=== PATIENT | female | born 1975 | race Caucasian/White ===

== ENCOUNTER → 2021-02-21 20:23 | Outpatient (REF) | payer MEDICARE, MEDICAID, SELFPAY | LOC: HO.SL 20:23 | PROVIDERS: Visit Provider Psychiatry & Neurology Neurology | DX: G47.33 Obstructive sleep apnea (adult) (pediatric) (principal) | CPT/HCPCS: 95811 ==

== ENCOUNTER → 2021-04-11 10:43 | Outpatient (BNVA) | payer MEDICARE, MEDICAID, SELFPAY | PROVIDERS: Visit Provider Nurse Practitioner Family | DX: G47.33 Obstructive sleep apnea (adult) (pediatric) (principal); G47.61 Periodic limb movement disorder | CPT/HCPCS: Q3014 ==

== ENCOUNTER 2021-04-13 13:56 | Outpatient (REF) | payer MEDICARE, MEDICAID, SELFPAY ==
[2021-04-13 15:01] LABS: MANUAL DIFF FLAG NO
[2021-04-13 15:05] LABS: Basophils Absolute Auto 0.1 X10*3/uL (0.0-0.2); Basophils Percent Auto 0.7 % (0-2); Eosinophils Absolute Auto 0.2 X10*3/uL (0.0-0.4); Eosinophils Percent Auto 2.2 % (0-4); Hematocrit 41.6 % (37-47); Hemoglobin 13.8 g/dl (12.0-16.0); Imm Gran Abs Auto 0.08 X10*3/uL (0.00-0.03); Lymphocytes Absolute Auto 2.1 X10*3/uL (1.2-4.9); Lymphocytes Percent Auto 26.9 % (20-40); Mean Corpuscular HGB Conc 33.2 g/dl (31.0-35.0); Mean Corpuscular Hemoglobin 33.4 pg (27.0-33.0); Mean Corpuscular Volume 100.7 fL (80-98); Mean Platelet Volume 9.4 fL (9.4-12.3); Monocytes Absolute Auto 0.4 X10*3/uL (0.1-1.2); Monocytes Percent Auto 5.6 % (2-11); Neutrophils Absolute Auto 4.9 X10*3/uL (2.0-8.3); Neutrophils Percent Auto 63.6 % (45-73); Platelet Count 348 X10*3/uL (160-400); Red Blood Count 4.13 X10*6/uL (4.20-5.50); Red Cell Distribution Width 12.2 % (11.0-16.0); White Blood Count 7.6 X10*3/uL (4.8-10.8)
[2021-04-13 15:32] LABS: Alanine Aminotransferase 24 U/L (0-31); Albumin Level 4.1 g/dL (3.5-5.0); Alkaline Phosphatase 69 U/L (39-117); Anion Gap 12 (12-20); Aspartate Amino Transferase 20 U/L (5-31); Bilirubin Total 0.4 mg/dL (0.0-1.0); Blood Urea Nitrogen 17 mg/dL (9-16); Calcium 9.8 mg/dL (8.4-10.2); Carbon Dioxide 27 mmol/L (22-29); Chloride 101 mmol/L (96-108); Estimated Glomerular Filt Rate > 60; Glucose Random 114 mg/dL (60-115); Iron 94 mcg/dL (30-160); Percent Iron Saturation 24 % (15-50); Potassium 4.6 mmol/L (3.3-5.1); Sodium 135 mmol/L (135-145); Total Iron Binding Capacity 385 mcg/dL (228-428); Total Protein 6.8 g/dL (6.5-8.0); Unsaturated Iron Binding 291 ug/dL
[2021-04-13 15:55] LABS: Ferritin 142 ng/mL (10-250); TSH reflex Free T4 0.88 uIU/mL (0.32-4.0)
[2021-04-13 15:59] LABS: Vitamin B12 356 pg/mL (200-900)
[2021-04-17 22:03] LABS: Transferrin 297 mg/dL (188-341)
== END 2021-04-13 13:57 | disposition home or self-care (01) ==
LOC: HO.LAB 13:56
PROVIDERS: PCP Internal Medicine; Visit Provider Nurse Practitioner Family
DX: D64.9 Anemia, unspecified (principal); G47.61 Periodic limb movement disorder; R53.83 Other fatigue
CPT/HCPCS: 36415; 80053; 82607; 82728; 82746; 83540; 84443; 84466; 85025

== ENCOUNTER → 2021-06-27 11:19 | Outpatient (BNVA) | payer MEDICARE, MEDICAID, SELFPAY | PROVIDERS: PCP Internal Medicine; Visit Provider Nurse Practitioner Family | CPT/HCPCS: Q3014 ==

== ENCOUNTER → 2021-09-19 11:45 | Outpatient (BNVA) | payer MEDICARE, MEDICAID, SELFPAY | PROVIDERS: PCP Internal Medicine; Visit Provider Nurse Practitioner Family | CPT/HCPCS: Q3014 ==

== ENCOUNTER 2021-10-10 15:42 | Outpatient (REF) | payer MEDICARE, MEDICAID, SELFPAY ==
--- NOTE | ~2021-10-10 | XR_ITS ---
EXAMINATION: XR CHEST CLINICAL INFORMATION: Acute bronchitis COMPARISON: Previous chest x-ray March 2016 TECHNIQUE: 2 views of the chest were obtained. FINDINGS: The cardiac and mediastinal contours are normal. The lungs are clear. There is no pleural effusion or pneumothorax. There are mild degenerative changes of the spine. XR/XR chest 2V IMPRESSION: Unremarkable examination.
== END 2021-10-10 15:43 | disposition home or self-care (01) ==
LOC: HO.HMGCX 15:42
PROVIDERS: Visit Provider Internal Medicine
DX: Z13.89 Encounter for screening for other disorder (principal)
CPT/HCPCS: 71046

== ENCOUNTER 2021-10-10 16:04 | Outpatient (REF) | payer MEDICARE, MEDICAID, SELFPAY ==
[2021-10-11 12:58] LABS: Influenza A PCR NEGATIVE (Negative); Influenza B PCR NEGATIVE (Negative); Resp Syncy Virus RNA Qual PCR NEGATIVE (Negative); SARS COV2 PCR INHOUSE NEGATIVE (Negative)
== END 2021-10-10 16:05 | disposition home or self-care (01) ==
LOC: HO.LAB 16:04
PROVIDERS: Visit Provider Internal Medicine
DX: Z20.822 Contact with and (suspected) exposure to COVID-19 (principal); R43.9 Unspecified disturbances of smell and taste
CPT/HCPCS: 0241U; 36415; 71046

== ENCOUNTER 2022-05-03 13:01 | Outpatient (REF) | payer MEDICARE, MEDICAID, SELFPAY ==
--- NOTE | ~2022-05-03 | XR_ITS ---
EXAMINATION: XR FOOT, RIGHT CLINICAL INFORMATION: Pain COMPARISON: None TECHNIQUE: AP, lateral, and oblique views of the right foot. FINDINGS: No acute visible fracture or dislocation. 4 mm ossific density in the posterior talocalcaneal joint, likely degenerative in etiology though nonspecific. Tiny plantar calcaneal heel spur. Joint spaces and alignment are otherwise maintained. Soft tissues are unremarkable. XR/XR foot RT min 3V IMPRESSION: No acute visible fracture or dislocation.
== END 2022-05-03 13:02 | disposition home or self-care (01) ==
LOC: HO.HMGCX 13:01
DX: M79.671 Pain in right foot (principal)
CPT/HCPCS: 73630

== ENCOUNTER 2022-08-21 18:03 | Outpatient (REF) | payer MEDICARE, MEDICAID, SELFPAY ==
--- NOTE | ~2022-08-21 | MR_ITS ---
EXAMINATION: MR HIP WITHOUT CONTRAST, LEFT CLINICAL INFORMATION: Pain, worsening, heard pop; rule out tear. COMPARISON: None TECHNIQUE: MRI of the left hip was obtained using routine sequences on a high-field magnet. FINDINGS: LABRUM/CAPSULE: Intact BONES AND ARTICULAR CARTILAGE: Bone marrow signal is normal aside from the focal edema signal in the left parasymphyseal pubic bone adjacent to the adductor avulsion injury detailed below. Left hip joint appears relatively well-preserved, as does the imaged portion of the left SI joint. No appreciable acute osseous abnormalities in the right hemipelvis on the coronal whole pelvis images. Degenerative disc disease at L5-S1. MUSCLES AND TENDONS: A partial tear of the gluteus minimus tendon at its insertion on the greater tuberosity measures approximately 1 cm AP with subtle retraction of undersurface fibers. The more superficial fibers remain intact. Approximately one-half of the tendon thickness is involved. Surrounding soft tissues are edematous. There is mild gluteus medius tendinosis without a discrete gluteus medius tear. No significant muscle atrophy. Minimal hamstring tendinosis. At the pubic symphysis, there is a focal tear of the adductor longus aponeurosis at its lateral half measuring 1.1 cm in width with distal retraction of the torn margin by 5 mm. A small focus of cortical avulsion in this region is possible. There is surrounding soft tissue edema as well as underlying marrow edema at the pubic symphysis. Hip adductors are otherwise unremarkable. JOINT FLUID AND BURSAE: No joint effusion or bursitis. LIGAMENTUM TERES: Intact. INTRAPELVIC SOFT TISSUES: Unremarkable MR/MR hip LT wo con IMPRESSION: 1. Partial avulsion of the left adductor longus aponeurosis at the pubic symphysis, possibly with a small cortical fragment. 2. Partial tear of the gluteus minimus insertion. Mild gluteus medius tendinosis.
== END 2022-08-21 18:04 | disposition home or self-care (01) ==
LOC: HO.MRI 18:03
PROVIDERS: PCP Internal Medicine; Visit Provider Internal Medicine
DX: M25.552 Pain in left hip (principal)
CPT/HCPCS: 73721

== ENCOUNTER 2022-10-01 | Outpatient (REF) | payer MEDICARE, MEDICAID, SELFPAY ==
--- NOTE | ~2022-10-01 | XR_ITS ---
EXAMINATION: XR HIP, LEFT CLINICAL INFORMATION: Pain COMPARISON: MRI left hip from 08/21/2022 TECHNIQUE: Two views of the left hip. FINDINGS: Pelvic bones have normal alignment. The hip joint spaces are normal. No arthritic deformity. Pubic symphysis and sacroiliac joints are unremarkable. No focal lytic or blastic lesion. Multilevel osteophyte formation in the partially visualized lower lumbar spine. Soft tissues are grossly normal. XR/XR hip LT w PEL1V IMPRESSION: 1. Normal hips. 2. Mild discovertebral degenerative changes of the partially visualized lower lumbar spine.
== END 2022-10-01 00:01 | disposition home or self-care (01) ==
LOC: HO.HOSX
PROVIDERS: Visit Provider Physician Assistant
DX: S76.212A Strain of adductor muscle, fascia and tendon of left thigh, initial encounter (principal)
CPT/HCPCS: 73502; 99202

== ENCOUNTER → 2023-01-08 09:48 | Outpatient (REF) | payer MEDICARE, MEDICAID, SELFPAY ==
--- NOTE | 2023-01-08 09:52 | CA_ITS ---
Acquisition Time: 2023-01-08 10:04:19 Total Exercise Time: 00:06:11 Test Indications: CP Medications: SEE CHART Protocol: BETH Max HR: 144 BPM 82% of Pred: 174 BPM Max BP: 224/080 mmHG Max Work Load: 7.2 METS Exercise stress test with exercise 6 min 11 sec of Beth protocol, achieving 83% MPHR, with mild sob, no chest discomfort, with isolated PAC and PVC, with hypertensive response to exercise with max BP 224/80, without EKG changes meeting criteria for ischemia. In recovery BP returned back to baseline, 124/80. Test reviewed with Dr White Note: pt states she did not take her am meds today. Referred By: Veda Cain Overread By: MARITA ROSARIO
== END ==
LOC: HO.CARD 09:48
PROVIDERS: PCP Internal Medicine; Visit Provider Family Medicine
DX: I20.9 Angina pectoris, unspecified (principal)
CPT/HCPCS: 93017

== ENCOUNTER 2023-01-21 09:44 | Emergency (ER) | payer MEDICARE, MEDICAID, SELFPAY ==
[2023-01-21 09:48] VITALS: BP 181/96; PULSE 94; RESP 16; TEMP 36.6; O2SAT 98; BMI 47.2
--- NOTE | 2023-01-21 10:36 | ED.NEUROSD ---
HPI - Neuro Symptoms/Deficit General Chief Complaint: Neuro Symptoms/Deficit Stated Complaint: L side numbness/L ear hearing loss Time Seen by Provider: 01/21/23 10:35 Source: patient Mode of arrival: ambulatory Limitations: no limitations History of Present Illness HPI Narrative: left ear pain and now with left facial pain. Onset (ago): day(s) (1) Location: left face Severity: mild Associated symptoms: denies other symptoms Related Data Home Medications Medication Instructions Recorded Confirmed bupropion HCl 150 mg tablet,12 hr 150 mg PO DAILY 04/11/21 05/03/22 sustained-release celecoxib 200 mg capsule 200 mg PO DAILY 04/11/21 05/03/22 fluoxetine 20 mg capsule 60 mg PO DAILY 04/11/21 05/03/22 lamotrigine 100 mg tablet 100 mg PO DAILY 04/11/21 05/03/22 lisinopril 40 mg tablet 40 mg PO DAILY 04/11/21 05/03/22 loratadine 10 mg tablet 10 mg PO DAILY 04/11/21 05/03/22 propranolol 80 mg capsule,24 mg PO 04/11/21 05/03/22 hr,extended release Previous Rx's Medication Instructions Recorded albuterol sulfate 90 mcg/actuation 1 inh inhalation QID PRN shortness 10/10/21 aerosol inhaler of breath or wheezing #6.7 grams prednisone 10 mg tablet 30 mg PO DAILY #15 tabs 05/03/22 valacyclovir 1 gram tablet 1,000 mg PO BID #20 tabs 01/21/23 Allergies Allergy/AdvReac Type Severity Reaction Status Date / Time latex [LATEX] Allergy Intermediate HIVES Verified 01/21/23 09:53 Sulfa (Sulfonamide Allergy Mild VOMITING Verified 01/21/23 09:53 Antibiotics) [SULFA(SULFONAMIDE ANTIBIOTICS)] cefaclor [From CECLOR] Allergy Unknown HIVES Verified 01/21/23 09:53 Sulfacet-R Allergy Unknown unknown Uncoded 01/21/23 09:53 Review of Systems Review of Systems: Yes all other systems are reviewed and are negative Neurologic: Denies Sensory deficit (Neuro) Comments: patient with months of weakness, dizziness, numbness PMFSH Past Medical History Medical History Acute bronchitis High blood pressure Social History Social History Alcohol intake: former Patient Tobacco Use Status: Current everyday Tobacco user Smoked in Last 30 Days: Yes Use of substances other than those prescribed or required for medical reasons: No Advance Directives: No Advance Directives Information Provided: Yes Current occupational status: disabled Current occupation: rt hand Physical Exam Vital Signs: Vital Signs: Last Vital Signs Temp 97.8 F 01/21/23 09:48 Pulse 83 01/21/23 10:39 Resp 14 01/21/23 10:39 BP 135/74 01/21/23 10:39 Pulse Ox 97 01/21/23 10:39 O2 Del Method 01/21/23 10:39 BMI result Body Mass Index 47.2 Const: General: healthy appearing Nutritional Appearance: obese Orientation/consciousness: oriented to person and patient oriented x3 Limitations: no limitations HEENT: Head: Yes normal to inspection Ears: external ears normal General nose exam: Normal external nose present Mouth: Normal oral and palatal mucosa present and oropharynx normal Throat: Yes posterior oropharynx normal Eyes: General: appearance normal, both eyes and all related structures Neck: Other: supple Neck: Yes normal visual inspection Chest: Chest palpation & inspection: normal inspection of the chest Resp: Auscultation: clear to auscultation bilaterally Cardio: Jugular venous distension: no JVD Rate: regular rate Rhythm: regular rhythm Heart sounds: S1 normal heart sound present and S2 normal heart sound present GI: Inspection: Yes normal to inspection Palpation (GI): Soft to palpation, nontender and No hepatosplenomegaly present Auscultation: normal bowel sounds : General: Yes no CVA tenderness Back/Spine/Pelvis: Back: no CVA tenderness Skin: General skin exam: no rashes or lesions noted Neuro: General: oriented to person and patient oriented x3 Cranial nerves: Yes CN's II-XII intact bilaterally Motor exam (neuro): 5/5 motor strength present throughout Sensory Exam: No Sensory deficit (Neuro) Extrem: General: Yes normal to inspection Psych: Appearance: grossly normal Course Reevaluation(s) Reevaluation #1: patient with neurologic symptoms for months going for neuroligic workup for MS. Now with left facial pain, hearing change and change in taste. No skin lesion seen but patient sounds like she is developing zoster will treat with valcyclovir. Time: 10:47 Medical Decision Making Differential Diagnosis Differential Diagnoses: The differential diagnosis associated with the presentation includes (zoster, bells palsy, CVA, trigeminal neuralgia, ) Admission/Observation Consideration of admission/observation: Escalation of care including admission/observation considered (because of neurologic symptoms admission was considered) Tests considered The following testing was considered but not selected: CT of brain and MRI were considered Discharge Plan Discharge Clinical Impression: Neuralgia and neuritis, Herpes zoster Patient Disposition: Home, Self-Care Instructions: Shingles (ED), Paresthesia (ED) Prescriptions: New valacyclovir 1 gram tablet 1,000 mg PO BID Qty: 20 0RF No Action albuterol sulfate 90 mcg/actuation HFA aerosol inhaler 1 inh inhalation QID PRN (Reason: shortness of breath or wheezing) Qty: 6.7 1RF prednisone 10 mg tablet 30 mg PO DAILY Qty: 15 0RF lisinopril 40 mg tablet 40 mg PO DAILY propranolol 80 mg capsule,extended release 24 hr PO bupropion HCl 150 mg tablet sustained-release 12 hr 150 mg PO DAILY lamotrigine 100 mg tablet 100 mg PO DAILY loratadine 10 mg tablet 10 mg PO DAILY celecoxib 200 mg capsule 200 mg PO DAILY fluoxetine 20 mg capsule 60 mg PO DAILY Referrals: Hortencia Aguilar MD [Primary Care Provider] - 5 days
[2023-01-21 10:39] VITALS: BP 135/74; PULSE 83; RESP 14; O2SAT 97
== END 2023-01-21 11:18 | disposition home or self-care (01) ==
PROVIDERS: Emergency Provider Emergency Medicine; PCP Internal Medicine
DX: M79.2 Neuralgia and neuritis, unspecified (principal); B02.9 Zoster without complications
CPT/HCPCS: 99283; 99284

== ENCOUNTER 2023-03-19 15:25 | Outpatient (REF) | payer MEDICARE, MEDICAID, SELFPAY ==
--- NOTE | ~2023-03-19 | US_ITS ---
EXAMINATION: US THYROID CLINICAL INFORMATION: Thyromegaly. COMPARISON: None available. TECHNIQUE: Linear transducer grayscale and color Doppler examination with attention to the region of the thyroid. FINDINGS: SIZE: Measurements of the thyroid lobes and nodules are given in sagittal, anteroposterior and transverse dimensions respectively. Right Thyroid Lobe: 4.19 x 1.04 x 1.66 cm, volume 3.78 mL. Parenchyma: The gland echotexture is homogeneous. Thyroid vascularity is normal. Left Thyroid Lobe: 3.54 x 1.32 x 1.73 cm, volume 4.21 mL. Parenchyma: The gland echotexture is homogeneous. Thyroid vascularity is normal. Isthmus: 0.43 cm in maximum AP dimension. No focal thyroid nodule is seen. NODES: No lymphadenopathy is seen in the tissue surrounding the thyroid gland. US/US thyroid IMPRESSION: Normal thyroid ultrasound.
== END 2023-03-19 15:26 | disposition home or self-care (01) ==
LOC: HO.HMGCX 15:25
PROVIDERS: PCP Internal Medicine; Visit Provider Internal Medicine
DX: E01.0 Iodine-deficiency related diffuse (endemic) goiter (principal)
CPT/HCPCS: 76536

== ENCOUNTER 2023-04-24 15:15 | Outpatient (REF) | payer MEDICARE, MEDICAID, SELFPAY ==
[2023-04-26 09:28] LABS: Prolactin 6.1 ng/mL
== END 2023-04-24 15:16 | disposition home or self-care (01) ==
LOC: HO.LAB 15:15
PROVIDERS: Visit Provider Psychiatry & Neurology Neurology
DX: E66.9 Obesity, unspecified (principal)
CPT/HCPCS: 36415; 84146

== ENCOUNTER 2023-06-17 08:01 | Outpatient (AMB) | payer MEDICARE, MEDICAID, SELFPAY ==
--- NOTE | 2023-06-17 08:09 | MHC.OFFWIV ---
Intake Vital Signs 06/17/23 08:13 BP 136/80 Blood Pressure Location Rt brachial Position Sitting Pulse 80 Pulse Source Pulse Oximeter Pulse Oximetry (%) 97 Oxygen Delivery Method Room Air Intake Visit Reasons: EP LT knee injury (lobby) Intake Note: Patient here because she fell off a boat ladder and got her foot stuck which happened saturday. Patient Tobacco Use Status: Current everyday Tobacco user Allergies latex [LATEX] Allergy (Intermediate, Verified 06/17/23 08:50) HIVES Sulfa (Sulfonamide Antibiotics) [SULFA(SULFONAMIDE ANTIBIOTICS)] Allergy (Mild, Verified 06/17/23 08:50) VOMITING cefaclor [From CECLOR] Allergy (Unknown, Verified 06/17/23 08:50) HIVES Sulfacet-R Allergy (Unknown, Uncoded 06/17/23 08:50) unknown Medication List - Last Reconciled 06/17/23 by Alfa Mckeon MD bupropion HCl 150 mg PO DAILY celecoxib 200 mg PO DAILY fluoxetine 60 mg PO DAILY lamotrigine 100 mg PO DAILY lisinopril 20 mg PO DAILY loratadine 10 mg PO DAILY propranolol ER mg PO Do you need a note to return to daycare/school/sports/work: No HPI EP LT knee injury (lobby) HPI Details 48-year-old female presents to the office for a sick visit. Patient twisted her knee 2 days ago. She is having difficulty bearing weight. Able to walk with difficulty. Unable to bend her knee. [facility] Medical History Acute bronchitis High blood pressure Social History Alcohol intake: former Patient Tobacco Use Status: Current everyday Tobacco user Current occupational status: disabled Current occupation: rt hand Physical Exam Vital Signs: Last Vital Signs Pulse 80 06/17/23 08:13 BP 136/80 06/17/23 08:13 Pulse Ox 97 06/17/23 08:13 Oxygen Delivery Method Room Air 06/17/23 08:13 Extrem Other: Left knee: Suprapatellar swelling, joint line tenderness. Pain on flexion of the knee. Assessment & Plan Assessment & Plan (1) Sprain of left knee: Code(s): S83.92XA - Sprain of unspecified site of left knee, initial encounter Plan: X-ray images were personally reviewed by me. No fractures seen. Knee splint provided. Anti-inflammatory to be taken. Avoid weight-bearing for a few days. Coding Level of Care Code Est Pt Level 4 (46492) Diagnoses Sprain of left knee S83.92XA
[2023-06-17 08:13] VITALS: BP 136/80; PULSE 80; O2SAT 97
== END 2023-06-17 09:30 | disposition home or self-care (01) ==
PROVIDERS: PCP Internal Medicine; Visit Provider Internal Medicine
DX: S83.92XA Sprain of unspecified site of left knee, initial encounter (principal)
CPT/HCPCS: 99214

== ENCOUNTER 2023-06-17 08:53 | Outpatient (REF) | payer MEDICARE, MEDICAID, SELFPAY ==
--- NOTE | ~2023-06-17 | XR_ITS ---
EXAMINATION: XR KNEE, LEFT CLINICAL INFORMATION: Left knee pain. COMPARISON: None available. TECHNIQUE: Four views of the left knee. FINDINGS: Alignment is anatomic. Joint spaces are maintained. No displaced fracture. No significant joint effusion. XR/XR knee LT 4V IMPRESSION: No acute abnormality.
== END 2023-06-17 08:54 | disposition home or self-care (01) ==
LOC: HO.HMGCX 08:53
PROVIDERS: PCP Internal Medicine; Visit Provider Internal Medicine
DX: S83.92XA Sprain of unspecified site of left knee, initial encounter (principal)
CPT/HCPCS: 73564

== ENCOUNTER 2023-06-25 07:47 | Outpatient (AMB) | payer MEDICARE, MEDICAID, SELFPAY ==
--- NOTE | 2023-06-25 07:54 | MHC.OFFVIS ---
Intake Vital Signs 06/25/23 08:01 Height 5 ft 1 in Weight 240 lb BMI 45.3 BP 122/74 Blood Pressure Location Rt brachial Position Sitting Pulse 72 Pulse Source Pulse Oximeter Pulse Oximetry (%) 98 Oxygen Delivery Method Room Air Intake Visit Reasons: NPV / THANIA on CPAP - Confirmed Intake Note: Patient presents for THANIA. my doctor wanted to make sure my oxygen is ok with my machine that I'm currently using because I'm always tired Allergies latex [LATEX] Allergy (Intermediate, Verified 06/25/23 08:02) HIVES Sulfa (Sulfonamide Antibiotics) [SULFA(SULFONAMIDE ANTIBIOTICS)] Allergy (Mild, Verified 06/25/23 08:02) VOMITING cefaclor [From CECLOR] Allergy (Unknown, Verified 06/25/23 08:02) HIVES Sulfacet-R Allergy (Unknown, Uncoded 06/25/23 08:02) unknown HPI HPI Comments History of Present Illness Details 48 y/o female presents for follow-up visit for THANIA on CPAP. Pt reports her restless legs are still quite bothersome, but it is not consistent. She gets a restlessness/anxious feeling in the legs/uncomfortable sensation in her legs. The Calcium/Mag supplement helps and still taking it. The CPAP compliance and therapy response report (03/27/23-06/24/23) reviewed with the patient. She is on CPAP at [id number]. The usage days 99% and the average usage hours 7 hours 40 min. The AHI was 1.9/hr. Pt still experiences some daytime tiredness, but not always. She states that she is in perimenopause and having heavy period sometimes and it also caused tiredness. Pt had a brain MRI done to r/o MS and it was negative. [facility] Medical History (Updated 06/25/23 @ 08:04 by ELIZA Alegria) Acute bronchitis High blood pressure Surgical History (Updated 06/25/23 @ 08:04 by ELIZA Alegria) History of placement of ear tubes Family History (Updated 06/25/23 @ 08:05 by ELIZA Alegria) Father Diabetes HTN (hypertension) Mother THANIA (obstructive sleep apnea) Restless leg syndrome Lymphedema Social History (Updated 06/25/23 @ 08:05 by ELIZA Alegria) Alcohol intake: current Patient Tobacco Use Status: Current everyday Tobacco user Current occupational status: disabled Current occupation: rt hand Review of Systems Const All systems reviewed & are unremarkable except as noted in HPI and below Physical Exam Vital Signs: Last Vital Signs Pulse 72 06/25/23 08:01 BP 122/74 06/25/23 08:01 Pulse Ox 98 06/25/23 08:01 Oxygen Delivery Method Room Air 06/25/23 08:01 BMI result Body Mass Index 45.3 Const General: no acute distress Orientation/consciousness: patient oriented x3 Resp Effort & Inspection: able to speak in complete sentences Neuro General: patient oriented x3 Psych Mental Status: mental status grossly normal Speech and movement: Clear speech present Attitude: cooperative Assessment & Plan Assessment & Plan (1) Obstructive sleep apnea syndrome, severe: Comment: AHI 37.2/hr with O2 olvin 82%. Code(s): G47.33 - Obstructive sleep apnea (adult) (pediatric) (2) Periodic limb movement sleep disorder: Comment: w/ evening RLS componenet Code(s): G47.61 - Periodic limb movement disorder Plan Continue CPAP 11 cmH2O nightly > 4 hours. Clean machine routinely. Pt declines trial of medication for RLS. Her mom had OCD s/s w/ Requip (ate excessively). May trial weight blanket, vibrating foot rest, stretching, OTC RLS creams, evening walks. Advised patient to take ferrous sulfate 325mg q every other day with vitamin C 500 mg daily. Coding Level of Care Code Est Pt Level 4 (72753) Diagnoses Obstructive sleep apnea syndrome, severe G47.33 Periodic limb movement sleep disorder G47.61
[2023-06-25 08:01] VITALS: BP 122/74; PULSE 72; O2SAT 98; BMI 45.3
== END 2023-06-25 08:35 | disposition home or self-care (01) ==
LOC: HO.HSMC 07:47
PROVIDERS: PCP Internal Medicine; Visit Provider Nurse Practitioner Family
DX: G47.33 Obstructive sleep apnea (adult) (pediatric) (principal); G47.61 Periodic limb movement disorder
CPT/HCPCS: 99214

== ENCOUNTER → 2023-06-25 07:47 | Outpatient (BNVA) | payer MEDICARE, MEDICAID, SELFPAY | PROVIDERS: PCP Internal Medicine; Visit Provider Nurse Practitioner Family | DX: G47.33 Obstructive sleep apnea (adult) (pediatric) (principal); G47.61 Periodic limb movement disorder; Z72.0 Tobacco use; Z99.89 Dependence on other enabling machines and devices | CPT/HCPCS: 99212 ==

== ENCOUNTER 2023-10-29 11:46 | Outpatient (REF) | payer MEDICARE, MEDICAID, SELFPAY | END 2023-10-29 11:47 | disposition home or self-care (01) | LOC: HO.MAMMO 11:46 | PROVIDERS: PCP Internal Medicine; Visit Provider Internal Medicine | DX: Z12.31 Encounter for screening mammogram for malignant neoplasm of breast (principal) | CPT/HCPCS: 77063; 77067 ==

== ENCOUNTER → 2023-10-29 12:00 | Outpatient (BNV) | payer MEDICARE, MEDICAID, SELFPAY | PROVIDERS: PCP Internal Medicine; Visit Provider Radiology Diagnostic Radiology | DX: Z12.31 Encounter for screening mammogram for malignant neoplasm of breast (principal) | CPT/HCPCS: 77063; 77067 ==

== ENCOUNTER 2023-11-14 09:14 | Emergency (ER) | payer MEDICARE, MEDICAID, SELFPAY ==
--- NOTE | ~2023-11-14 | CT_ITS ---
EXAMINATION: CT CHEST, ABDOMEN AND PELVIS with contrast CLINICAL INFORMATION: Reason for Exam fall abd trauma COMPARISON: Prior CT abdomen 2012 TECHNIQUE: Multidetector volumetric CT imaging of the chest abdomen and pelvis obtained Axial MIP volume rendering provided. Sagittal and coronal reformatted images were obtained. This CT examination was performed using dose optimization techniques as appropriate, variously including the following: *Automated exposure control *Adjustment of mA and/or kV according to patient size (this includes techniques or standardized protocols for targeted exams where dose is matched to indication/reason for exam; i.e. extremities or head) *Use of iterative reconstruction technique CONTRAST: 85 mL Omnipaque 350 injected Reformatted coronal and sagittal imaging was performed. DLP: 1751 mGy-cm FINDINGS: DELIVERY DEPARTMENT SUPERVISOR, LINES TUBES: Wood Treating Inspector reviewed, no lines. LUNGS: Interstitial: No evidence of significant interstitial disease. Lung nodules: Calcified granuloma right upper lobe likely benign. There are no suspicious lung nodules. AIRWAYS: Trachea and bronchi are normal. PLEURA: No pleural effusion or pneumothorax. MEDIASTINUM AND KENZIE: The visualized thyroid gland is unremarkable. No mediastinal, hilar or axillary lymphadenopathy. There is no mediastinal mass. THORACIC AORTA: Thoracic aorta is normal in size. CHEST WALL, LOWER NECK, SURROUNDING SOFT TISSUES: Cortical step-off in the sternum felt to be motion artifact. 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 Spondylosis of dorsal spine. No fracture. HEART AND PERICARDIUM: Heart is normal in size. There is no pericardial effusion. No coronary calcifications detected. HEPATOBILIARY: No focal hepatic lesions. No biliary ductal dilatation. GALLBLADDER: Gallbladder unremarkable. SPLEEN: Spleen is normal in size. PANCREAS: No focal mass or ductal dilatation. GI TRACT: No distention or wall thickening. No CT evidence of appendicitis. ADRENALS: No adrenal nodules. KIDNEYS/URETERS: No hydronephrosis, stones or solid mass lesions. PELVIC ORGANS/BLADDER: Unremarkable PERITONEUM: No free air or fluid. LYMPH NODES: no retroperitoneal or mesenteric lymphadenopathy. VASCULAR:Abdominal aorta normal in size, no aneurysm found. BONES, ABDOMINAL WALL AND SOFT TISSUES: Age-appropriate changes of the spine and skeletal system, no destructive osteolytic or osteosclerotic bone lesion found degenerative discitis in the endplates at L5-S1. CT/CT chest w IV con IMPRESSION: * No CT evidence of solid organ injury. * Cortical step-off in the sternum felt to be motion artifact. 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 * Mild spondylosis of dorsal spine. Sclerotic changes and a plate around the disc space L5-S1 with vacuum phenomenon suggestive degenerative discitis. * Calcified granuloma right upper lobe likely benign. No suspicious lung nodules.
--- NOTE | ~2023-11-14 | CT_ITS ---
EXAMINATION: CT CHEST, ABDOMEN AND PELVIS with contrast CLINICAL INFORMATION: Reason for Exam fall abd trauma COMPARISON: Prior CT abdomen 2012 TECHNIQUE: Multidetector volumetric CT imaging of the chest abdomen and pelvis obtained Axial MIP volume rendering provided. Sagittal and coronal reformatted images were obtained. This CT examination was performed using dose optimization techniques as appropriate, variously including the following: *Automated exposure control *Adjustment of mA and/or kV according to patient size (this includes techniques or standardized protocols for targeted exams where dose is matched to indication/reason for exam; i.e. extremities or head) *Use of iterative reconstruction technique CONTRAST: 85 mL Omnipaque 350 injected Reformatted coronal and sagittal imaging was performed. DLP: 1751 mGy-cm FINDINGS: COAL MINER, LINES TUBES: Manual Winder reviewed, no lines. LUNGS: Interstitial: No evidence of significant interstitial disease. Lung nodules: Calcified granuloma right upper lobe likely benign. There are no suspicious lung nodules. AIRWAYS: Trachea and bronchi are normal. PLEURA: No pleural effusion or pneumothorax. MEDIASTINUM AND KENZIE: The visualized thyroid gland is unremarkable. No mediastinal, hilar or axillary lymphadenopathy. There is no mediastinal mass. THORACIC AORTA: Thoracic aorta is normal in size. CHEST WALL, LOWER NECK, SURROUNDING SOFT TISSUES: Cortical step-off in the sternum felt to be motion artifact. 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 Spondylosis of dorsal spine. No fracture. HEART AND PERICARDIUM: Heart is normal in size. There is no pericardial effusion. No coronary calcifications detected. HEPATOBILIARY: No focal hepatic lesions. No biliary ductal dilatation. GALLBLADDER: Gallbladder unremarkable. SPLEEN: Spleen is normal in size. PANCREAS: No focal mass or ductal dilatation. GI TRACT: No distention or wall thickening. No CT evidence of appendicitis. ADRENALS: No adrenal nodules. KIDNEYS/URETERS: No hydronephrosis, stones or solid mass lesions. PELVIC ORGANS/BLADDER: Unremarkable PERITONEUM: No free air or fluid. LYMPH NODES: no retroperitoneal or mesenteric lymphadenopathy. VASCULAR:Abdominal aorta normal in size, no aneurysm found. BONES, ABDOMINAL WALL AND SOFT TISSUES: Age-appropriate changes of the spine and skeletal system, no destructive osteolytic or osteosclerotic bone lesion found degenerative discitis in the endplates at L5-S1. CT/CT abdomen pelvis w IV con IMPRESSION: * No CT evidence of solid organ injury. * Cortical step-off in the sternum felt to be motion artifact. 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 * Mild spondylosis of dorsal spine. Sclerotic changes and a plate around the disc space L5-S1 with vacuum phenomenon suggestive degenerative discitis. * Calcified granuloma right upper lobe likely benign. No suspicious lung nodules.
--- NOTE | ~2023-11-14 | CT_ITS ---
CT HEAD WITHOUT IV CONTRAST CT CERVICAL SPINE WITHOUT IV CONTRAST CT MAXILLOFACIAL WITHOUT IV CONTRAST INDICATION: Fall and loss of consciousness. COMPARISON: Head CT May 17, 2017. TECHNIQUE: Multidetector CT acquisitions of the head, maxillofacial region, and cervical spine were obtained without IV contrast. Multiplanar reformats were acquired and utilized for image interpretation. This CT examination was performed using dose optimization techniques as appropriate, variously including the following: *Automated exposure control *Adjustment of mA and/or kV according to patient size (this includes techniques or standardized protocols for targeted exams where dose is matched to indication/reason for exam; i.e. extremities or head) *Use of iterative reconstruction technique FINDINGS: HEAD: There is no intracranial hemorrhage, hydrocephalus, extra-axial surface collection, midline shift, or other herniation pattern. [place] to white matter differentiation is diffusely maintained without evidence of an evolved acute territorial infarct. The basilar cisterns are preserved. Anterior frontal scalp swelling/hematoma. No acute osseous abnormality. The paranasal sinuses and the mastoid air cells are well aerated. MAXILLOFACIAL: No acute maxillofacial fractures. The paranasal sinuses are clear. TMJs are unremarkable. Right greater than left periorbital soft tissue swelling. CERVICAL SPINE: Mild degenerative anterior subluxation of C2 on C3. There is advanced multilevel hypertrophic facet arthropathy. Multilevel endplate osteophytes. No acute fractures and no acute subluxations. Hypertrophic degenerative changes involving the atlantodental interval. Imaged lung apices are clear. No significant extra spinal soft tissue findings. CT/CT cervical spine wo IV con IMPRESSION: - No acute intracranial abnormality. Anterior frontal scalp swelling/hematoma. - No acute osseous abnormality within the cervical spine. Cervical spondylosis. - No acute maxillofacial fractures. Right greater than left periorbital soft tissue swelling.
[2023-11-14 09:30] VITALS: BP 149/77; PULSE 82; RESP 20; TEMP 36.7; O2SAT 99; BMI 45.7
--- NOTE | 2023-11-14 10:30 | ED.FALL ---
HPI - Fall General Chief Complaint: Fall Stated Complaint: fell down stairs 2 days ago head inj Time Seen by Provider: 11/14/23 10:28 Source: patient Mode of arrival: ambulatory Limitations: no limitations History of Present Illness HPI Narrative: This is a 48-year-old female with history of obstructive sleep apnea, fatigue, anemia, obesity presenting to the emergency department status post falling down an entire flight of stairs 2 nights ago. She says they got new carpeting in the house so it was very slippery. She lost her footing and fell down the steps. Patient reports she hit her head on the wall at the bottom. She thinks she lost consciousness for a few seconds. Her and sister got her off the ground a few minutes later. Since then she has been having bruising to bilateral eyes while forehead and has been having intermittent nausea however no vomiting. Reports intermittent diffuse headaches. She has neck and back pain. Not on blood thinners. Denies chest pain, shortness of breath, nausea, vomiting, abdominal pain, vision changes, dizziness, weakness. She denies gait abnormalities. She denies urinary and bowel incontinence. No paresthesias or numbness. Related Data Home Medications Medication Instructions Recorded Confirmed bupropion HCl 150 mg tablet,12 hr 150 mg PO DAILY 04/11/21 06/17/23 sustained-release celecoxib 200 mg capsule 200 mg PO DAILY 04/11/21 06/17/23 fluoxetine 20 mg capsule 60 mg PO DAILY 04/11/21 06/17/23 lamotrigine 100 mg tablet 100 mg PO DAILY 04/11/21 06/17/23 loratadine 10 mg tablet 10 mg PO DAILY 04/11/21 06/17/23 propranolol 80 mg capsule,24 mg PO 04/11/21 06/17/23 hr,extended release lisinopril 40 mg tablet 20 mg PO DAILY 06/17/23 06/17/23 Previous Rx's Medication Instructions Recorded cyclobenzaprine 10 mg tablet 10 mg PO BEDTIME PRN muscle spasm 11/14/23 #7 tabs ketorolac 10 mg tablet 10 mg PO TID PRN pain 5 days #15 11/14/23 tabs lidocaine 5 % topical patch 1 patch topical DAILY PRN pain #15 11/14/23 ea Allergies Allergy/AdvReac Type Severity Reaction Status Date / Time latex [LATEX] Allergy Intermediate HIVES Verified 06/25/23 08:02 Sulfa (Sulfonamide Allergy Mild VOMITING Verified 06/25/23 08:02 Antibiotics) [SULFA(SULFONAMIDE ANTIBIOTICS)] cefaclor [From [facility]] Allergy Unknown HIVES Verified 06/25/23 08:02 Sulfacet-R Allergy Unknown unknown Uncoded 06/25/23 08:02 Review of Systems Review of Systems: Constitutional : No Weight loss, No Fever, No Chills, Cardiovascular : No Chest Pain, No SOB Respiratory : No Cough, No Dyspnea Gastrointestinal : No Nausea, No Vomiting, No Diarrhea, No abdominal Pain, No Hematochezia, No Melena Genitourinary : No Dysuria, No Urinary Frequency, No Hematuria, No Urinary Incontinence, Musculoskeletal : + back pain +neck pain Skin : +Bruising. No Skin Lesions, No rash Neuro : No Weakness, No Numbness, No Paresthesias, no loss of bowel or bladder incontinence, no saddle anesthesia. +Headache All other systems reviewed and are negative Yes all other systems are reviewed and are negative PMFSH Past Medical History Attestation statement: The following information was validated with the patient. Source: old records reviewed and nursing notes reviewed Medical History High blood pressure Acute bronchitis Surgical History History of placement of ear tubes Family History Family History Father Diabetes HTN (hypertension) Mother THANIA (obstructive sleep apnea) Restless leg syndrome Lymphedema Social History Social History Alcohol intake: current Patient Tobacco Use Status: Current everyday Tobacco user Current occupational status: disabled Current occupation: rt hand Physical Exam Vital Signs: Vital Signs: Last Vital Signs Temp 98.0 F 11/14/23 09:30 Pulse 70 11/14/23 12:46 Resp 18 11/14/23 12:46 BP 148/97 H 11/14/23 12:46 Pulse Ox 96 11/14/23 12:46 O2 Del Method Room Air 11/14/23 12:46 BMI result Body Mass Index 45.7 vss Appearance: Alert.? Oriented X3.? No acute distress.? Head: Normocephalic, atraumatic, no step-offs or deformities Eyes: Periorbital ecchymosis bilaterally. Pupils equal, round and reactive to light. EOM intact. Neck: Normal inspection.? Neck supple.? CVS: Normal heart rate and rhythm.? Pulses normal.? Respiratory: No respiratory distress.? Breath sounds normal.? Abdomen: Soft and nontender.? Skin: Skin warm and dry.? Normal skin color.? Normal skin turgor.? Back: No midline tenderness, no C-spine tenderness, full range of motion, no CVA tenderness bilaterally. Paraspinal tenderness in the cervical and lumbar regions. Extremities: No lower extremity edema.? No calf ttp. 5/5 strength to bilateral upper and lower extremities. Brachial, ulnar, radial, DP, and PT 2+ bilaterally. Neuro: Oriented X 3.? No motor deficit.? No sensory deficit. CN 2-12 intact. Gait normal. No foot drop. No saddle anesthesia. Course Reevaluation(s) Reevaluation #1: CBC with no acute findings. Chemistry unremarkable. Troponin negative, EKG nonischemic. CT head, no acute intracranial abnormality, anterior front scalp swelling hematoma. No osseous injury and cervical spine. No acute maxillofacial fractures. Right greater than left periorbital soft tissue swelling. Again patient's extraocular movements intact no signs of optic nerve entrapment. Patient's CT chest, abdomen pelvis pending, read or taking a while. Patient requesting to go home. Will call her if there is anything abnormal on imaging. Time: 14:55 Medications Administered Discontinued Medications Generic Name Dose Route Start Last Admin Trade Name Bill PRN Reason Stop Dose Admin Acetaminophen 975 mg 11/14/23 14:54 11/14/23 15:07 Acetaminophen 325 Mg Tablet PO 11/14/23 14:55 975 mg ONCE ONE Administration Iohexol 85 ml 11/14/23 14:55 11/14/23 14:55 Iohexol 350 Mg/Ml 75 Ml Infus..Btl IV 11/14/23 14:56 85 ml ONCE ONE Administration Ketorolac Tromethamine 30 mg 11/14/23 11:36 11/14/23 12:26 Ketorolac Tromethamine 30 Mg/Ml Vial IVPUSH 11/14/23 11:37 30 mg ONCE ONE Administration Lidocaine 1 patch 11/14/23 11:36 11/14/23 12:25 Lidocaine 4 % Patch Adh..Patch TRANSDERMA 11/14/23 11:37 1 patch ONCE ONE Administration Protocol Medical Decision Making Medical Decision Making [facility] Narrative: 48-year-old female presents status post fall 2 days ago with trauma to face, nausea, headache, neck pain, and back pain x2 days. Not on thinners Bilateral orbital ecchymosis, extraocular movements intact and pain-free. There is also ecchymosis and contusion to patient's forehead. Moderate-sized in the center. Patient is having tenderness to palpation to cervical spine in the midline, and associated paraspinous tenderness bilaterally. NIH stroke scale 0. Will rule out traumatic injury to head, neck, facial bones. No preceding symptoms to fall this is likely mechanical fall, unlikely ACS, pulmonary embolism, dissection. Will obtain EKG however and basic labs to rule out metabolic derangement and anemia Plan at this time labs, imaging. Differential Diagnosis Differential Diagnoses: The differential diagnosis associated with the presentation includes Will rule out traumatic injury to head, neck, facial bones. No preceding symptoms to fall this is likely mechanical fall, unlikely ACS, pulmonary embolism, dissection. Will obtain EKG however and basic labs to rule out metabolic derangement and anemia Admission/Observation Consideration of admission/observation: Escalation of care including admission/observation considered Lab Data [facility] Lab Attestation statement: I reviewed the patient's lab results. 11/14/23 11:06 11/14/23 12:51 Labs: Lab Results 11/14/23 11/14/23 Range/Units 11:06 12:51 WBC 8.0 (4.8-10.8) X10*3/uL RBC 4.36 (4.20-5.50) X10*6/uL Hgb 14.2 (12.0-16.0) g/dl Hct 42.6 (37.0-47.0) % MCV 97.7 (80.0-98.0) fL MCH 32.6 (27.0-33.0) pg MCHC 33.3 (31.0-35.0) g/dl RDW 12.2 (11.0-16.0) % Plt Count 285 (160-400) X10*3/uL MPV 9.2 L (9.4-12.3) fL Immature Gran % (Auto) 0.5 H (0.0-0.4) % Neut % (Auto) 56.8 (45-73) % Lymph % (Auto) 31.3 (20-40) % [place] % (Auto) 6.2 (2-11) % Eos % (Auto) 4.7 H (0-4) % Baso % (Auto) 0.5 (0-2) % Lymph # (Auto) 2.5 (1.2-4.9) X10*3/uL [place] # (Auto) 0.5 (0.1-1.2) X10*3/uL Eos # (Auto) 0.4 (0.0-0.4) X10*3/uL Baso # (Auto) 0.0 (0.0-0.2) X10*3/uL Abs Immat Gran (auto) 0.04 H (0.00-0.03) X10*3/uL Absolute Neuts (auto) 4.6 (2.0-8.3) x10*3/uL Absolute Nucleated RBC 0.000 (0.0-0.012) X10*3/uL Nucleated RBC % (auto) 0.0 (0.0-0.2) /100WBC PT 10.3 L (11.1-13.3) SEC INR 0.8 L (0.9-1.1) Sodium 136 (135-145) mmol/L Potassium 4.4 (3.3-5.1) mmol/L Chloride 105 (96-108) mmol/L Carbon Dioxide 24 (22-29) mmol/L Anion Gap 11 L (12-20) BUN 22 H (9-16) mg/dL Creatinine 0.63 (0.5-1.4) mg/dL Estim Creat Clear Calc 131.4 Estimated GFR > 60 Random Glucose 87 (60-115) mg/dL Calcium 9.3 (8.4-10.2) mg/dL Magnesium 2.1 (1.6-2.6) mg/dL Total Bilirubin 0.6 (0.0-1.0) mg/dL AST 18 (5-31) U/L ALT 23 (0-31) U/L Alkaline Phosphatase 71 (39-117) U/L Troponin I High Sens < 2.7 (<3.5-17.0) ng/L Total Protein 6.9 (6.5-8.0) g/dL Albumin 4.1 (3.5-5.0) g/dL Independent Interpretation I performed an independent interpretation of an: EKG and CT Scan Radiology Impression Discussion of test interpretation with radiology: I have reviewed the radiologist's reading. Chronic Conditions Patient?s care impacted by: Other (obesity ) Critical Care Time Critical Care Time Critical Care Time: No Discharge Plan Discharge Clinical Impression: Traumatic ecchymosis of orbit, Fall, Contusion, Concussion Patient Disposition: Home, Self-Care Instructions: Concussion (ED), Fall Prevention (ED) Additional Instructions: Take your medications as prescribed. If you were prescribed antibiotics today, it is important that you take your medication to their entirety, do not skip any doses, do not finish them early. Follow-up with your primary care provider this week. Return to the emergency department with new or worsening symptoms. Such as fevers, chills, chest pain, shortness of breath, nausea, vomiting, dizziness, headache, vision changes, lethargy In case of emergency call 911 Toradol has been sent to your pharmacy, you tolerated this well in the department. Please take this as prescribed do not take this with ibuprofen, or other NSAIDs, do not mix this with alcohol. Side effects of this medication including increased risk for bleeding and possible kidney injury. Cyclobenzaprine as a muscle relaxer to make you sleepy, do not take this with any sedatives, alcohol, do not drive or operate machinery while taking this. CT/CT head/brain wo IV con IMPRESSION: - No acute intracranial abnormality. Anterior frontal scalp swelling/hematoma. - No acute osseous abnormality within the cervical spine. Cervical spondylosis. - No acute maxillofacial fractures. Right greater than left periorbital soft tissue swelling. Prescriptions: New cyclobenzaprine 10 mg tablet 10 mg PO BEDTIME PRN (Reason: muscle spasm) Qty: 7 0RF lidocaine 5 % adhesive patch,medicated 1 patch topical DAILY PRN (Reason: pain) Qty: 15 0RF Rx Instructions: leave on most painful area for up to 12 hrs ketorolac 10 mg tablet 10 mg PO TID PRN (Reason: pain) 5 Days Qty: 15 0RF No Action propranolol 80 mg capsule,extended release 24 hr PO bupropion HCl 150 mg tablet sustained-release 12 hr 150 mg PO DAILY lamotrigine 100 mg tablet 100 mg PO DAILY loratadine 10 mg tablet 10 mg PO DAILY celecoxib 200 mg capsule 200 mg PO DAILY fluoxetine 20 mg capsule 60 mg PO DAILY lisinopril 40 mg tablet 20 mg PO DAILY Referrals: Hortencia Aguilar MD [Primary Care Provider] - 2 days Stand Alone Forms: Work/School Release Discharge Date/Time: 11/14/23 15:19
--- NOTE | 2023-11-14 10:34 | ECG_ITS ---
Test Reason : FALL Blood Pressure : / mmHG Vent. Rate : 072 BPM Atrial Rate : 072 BPM P-R Int : 150 ms QRS Dur : 092 ms QT Int : 366 ms P-R-T Axes : 041 048 032 degrees QTc Int : 400 ms Normal sinus rhythm Normal ECG When compared with ECG of 05-MAY-2019 13:12, No significant change was found Referred By: Myles Carvalho Electronically Signed By:Julio Solitario
[2023-11-14 11:20] LABS: MANUAL DIFF FLAG NO
[2023-11-14 11:23] LABS: Basophils Percent Auto 0.5 % (0-2); Eosinophils Absolute Auto 0.4 X10*3/uL (0.0-0.4); Eosinophils Percent Auto 4.7 % (0-4); Hematocrit 42.6 % (37.0-47.0); Hemoglobin 14.2 g/dl (12.0-16.0); Imm Gran Abs Auto 0.04 X10*3/uL (0.00-0.03); Imm Gran Pct Auto 0.5 % (0.0-0.4); Lymphocytes Absolute Auto 2.5 X10*3/uL (1.2-4.9); Lymphocytes Percent Auto 31.3 % (20-40); Mean Corpuscular HGB Conc 33.3 g/dl (31.0-35.0); Mean Corpuscular Hemoglobin 32.6 pg (27.0-33.0); Mean Corpuscular Volume 97.7 fL (80.0-98.0); Mean Platelet Volume 9.2 fL (9.4-12.3); Monocytes Absolute Auto 0.5 X10*3/uL (0.1-1.2); Monocytes Percent Auto 6.2 % (2-11); Neutrophils Absolute Auto 4.6 x10*3/uL (2.0-8.3); Neutrophils Percent Auto 56.8 % (45-73); Platelet Count 285 X10*3/uL (160-400); Red Blood Count 4.36 X10*6/uL (4.20-5.50); Red Cell Distribution Width 12.2 % (11.0-16.0)
[2023-11-14 11:26] LABS: INTERNATIONAL NORM RATIO 0.8 (0.9-1.1); Prothrombin Time 10.3 SEC (11.1-13.3)
[2023-11-14 11:46] LABS: Troponin-I High Sensitivity < 2.7 ng/L (<3.5-17.0)
[2023-11-14] MEDS: Lidocaine 4 % Patch ADH..PATCH 1 PATCH TRANSDERMA (12:25)
[2023-11-14] MEDS: Ketorolac Tromethamine 30 MG/ML VIAL IVPUSH (12:26)
[2023-11-14 12:46] VITALS: BP 148/97; PULSE 70; RESP 18; O2SAT 96
[2023-11-14 13:15] LABS: Alanine Aminotransferase 23 U/L (0-31); Albumin Level 4.1 g/dL (3.5-5.0); Alkaline Phosphatase 71 U/L (39-117); Anion Gap 11 (12-20); Aspartate Amino Transferase 18 U/L (5-31); Bilirubin Total 0.6 mg/dL (0.0-1.0); Blood Urea Nitrogen 22 mg/dL (9-16); Calcium 9.3 mg/dL (8.4-10.2); Carbon Dioxide 24 mmol/L (22-29); Chloride 105 mmol/L (96-108); Creatinine Clr Calc Pharmacy 131.4; Estimated Glomerular Filt Rate > 60; Glucose Random 87 mg/dL (60-115); Magnesium 2.1 mg/dL (1.6-2.6); Potassium 4.4 mmol/L (3.3-5.1); Sodium 136 mmol/L (135-145); Total Protein 6.9 g/dL (6.5-8.0)
[2023-11-14] MEDS: iohexoL 350 MG/ML 75 ML INFUS..BTL 85 ML IV (14:55)
[2023-11-14] MEDS: Acetaminophen 325 MG TABLET 975 MG PO (15:07)
== END 2023-11-14 15:19 | disposition home or self-care (01) ==
PROVIDERS: Physician Assistant; Emergency Provider Student in an Organized Health Care Education/Training Program; PCP Internal Medicine
DX: S06.0XAA Concussion with loss of consciousness status unknown, initial encounter (principal); S00.83XA Contusion of other part of head, initial encounter; S05.12XA Contusion of eyeball and orbital tissues, left eye, initial encounter; S05.11XA Contusion of eyeball and orbital tissues, right eye, initial encounter; W10.8XXA Fall (on) (from) other stairs and steps, initial encounter; E66.9 Obesity, unspecified; Z68.42 Body mass index [BMI] 45.0-49.9, adult; Y93.9 Activity, unspecified; Y92.018 Other place in single-family (private) house as the place of occurrence of the external cause; Y99.9 Unspecified external cause status
CPT/HCPCS: 36415; 70450; 70486; 71260; 72125; 74177; 80053; 83735; 84484; 85025; 85610; 93005; 96374; 99284; 99285; J1885; Q9967

== ENCOUNTER → 2023-11-14 10:34 | Outpatient (BNV) | payer MEDICARE, MEDICAID, SELFPAY | PROVIDERS: Emergency Provider Student in an Organized Health Care Education/Training Program; PCP Internal Medicine; Visit Provider Internal Medicine Cardiovascular Disease | DX: R26.81 Unsteadiness on feet (principal) | CPT/HCPCS: 93010 ==

== ENCOUNTER 2024-11-12 13:43 | Outpatient (REF) | payer MEDICARE, MEDICAID, SELFPAY | END 2024-11-12 13:44 | disposition home or self-care (01) | LOC: HO.MAMMO 13:43 | PROVIDERS: PCP Internal Medicine; Visit Provider Internal Medicine | DX: Z12.31 Encounter for screening mammogram for malignant neoplasm of breast (principal) | CPT/HCPCS: 77063; 77067 ==

== ENCOUNTER → 2024-11-12 14:00 | Outpatient (BNV) | payer MEDICARE, MEDICAID, SELFPAY | PROVIDERS: PCP Internal Medicine; Visit Provider Internal Medicine | DX: Z12.31 Encounter for screening mammogram for malignant neoplasm of breast (principal) | CPT/HCPCS: 77063; 77067 ==

== ENCOUNTER 2025-05-03 09:15 | Outpatient (REF) | payer MEDICARE, MEDICAID, SELFPAY ==
--- NOTE | ~2025-05-03 | FL_ITS ---
EXAMINATION: XR BARIUM SWALLOW CLINICAL INFORMATION: Dysphagia COMPARISON: None available. TECHNIQUE: Routine barium swallow was performed in upright with thick barium and barium coated saltine crackers and thin barium in prone lying position. FINDINGS: Following oral administration of thick barium there is normal propagation bolus from the oral cavity through the pharynx, esophagus into stomach without any evidence of obstruction, narrowing or stricture. Overall administration of barium coated saltine cracker there is normal oral mastication and propagation bolus from the oral cavity, pharynx, esophagus and eventually the stomach. On placing patient prone lying and oral administration of thin barium there is good distention of esophagus without any evidence of obstruction, narrowing or stricture. No gastroesophageal reflux or hiatal hernia seen. FLUOROSCOPY TIME: 1 minute 44 seconds DOSE AREA PRODUCT: [id number] uGy-m2 (microgray-meter squared) FL/FL barium swallow IMPRESSION: Unremarkable barium swallow exam. Examination. Electronically signed by: Joao Armando MD 05/03/2025 01:08 PM EDT
--- OUTSIDE RECORDS SUMMARY | 2025-05-03 09:53 | XMS_ITS | Clinical Summary ---
Author Organization [employer] Address [address] [place] [address] [address] [place] [address] Care Team Providers Care Teacher Of The Deaf/Hard Of Hearing Name Role Phone Hortencia Aguilar MD Primary Care Provider [phone] Allergies Active Allergy Reactions Criticality Noted Date Comments Cefaclor Rash Low 01/14/2015 Latex 01/06/2015 Pollen Extract 01/03/2023 Other reaction(s): itchy watery eyes Sulfa Antibiotics 06/18/2019 Other reaction(s): N/V Medications omega-3 (Fish Oil) 1000 MG capsule 1 capsule in the morning. Active Multiple Vitamins-Minerals (Multi For Her 50+) tablet as directed Orally Active lamoTRIgine (LaMICtal) 100 MG tablet TAKE 1 TABLET BY MOUTH EVERY DAY 90 tablet 3 3 Active FLUoxetine (PROzac) 20 MG capsule TAKE 3 CAPSULES BY MOUTH EVERY DAY 270 capsule 3 4 Active loratadine (Claritin) 10 MG tablet TAKE 1 TABLET BY MOUTH EVERY DAY 90 tablet 4 4 Active lisinopril 5 MG tabletIndications :Primary hypertension Take 1 tablet (5 mg) by mouth in the morning. 90 tablet 3 4 08/20/20 25 Active buPROPion SR (Wellbutrin SR) 150 MG 12 hr tablet TAKE 1 TABLET BY MOUTH EVERY DAY 90 tablet 11 4 Active celecoxib (CeleBREX) 200 MG capsuleIndication s:Generalized arthritis TAKE 1 CAPSULE BY MOUTH EVERY DAY 90 capsule 3 5 Active propranolol LA (Inderal LA) 80 MG 24 hr capsuleIndication s:Primary hypertension TAKE 1 CAPSULE BY MOUTH ONCE DAILY 90 capsule 3 Active Active Problems Problem Noted Date Diagnosed Date Bipolar disorder 01/17/2023 Depression with anxiety 01/17/2023 Generalized arthritis 01/17/2023 Hypertension 01/17/2023 Memory loss 01/17/2023 Morbid obesity with BMI of 45.0-49.9, adult 12/03 Vitamin D deficiency 12/27/2022 Sleep apnea 12/27/2022 Sciatica 12/27/2022 Restless legs 12/27/2022 Fibromyalgia 12/27/2022 Encounters Date Type Department Care Team Description 04/14/2025 9:00 AM EDT Office Visit [facility] [address] [place] [address] Carlos Tipton Dental calculus (Primary Dx) 02/14/2025 Refill [facility] [address] [place] [address] Hortencia Aguilar MD Primary hypertension 02/12/2025 Population Health Risk Score [facility] ([facility]) Department [address] [id number] Provider, Population Health Generic 02/04/2025 9:00 AM EST Office Visit [facility] [address] [place] [address] Hortencia Aguilar MD Pharyngoesophageal dysphagia (Primary Dx); Left buttock pain; Generalized arthritis; Tobacco abuse; Primary hypertension; Generalized anxiety disorder 02/04/2025 Travel from Last 3 Months Immunizations Immunization Administration Dates Next Due PPD Test 01/10/2012 Tdap 04/05/2014 Social History Tobacco Use Types Packs/Day Years Used Date Smoking Tobacco: Every Day Cigarettes Passive Smoke Exposure: Never Smokeless Tobacco: Never Tobacco Cessation:Ready to Q uit: Not Asked; Counseling Given: Not Answered Alcohol Use Standard Drinks/Week Comments Yes 0 (1 standard drink = 0.6 oz pur e alcohol) PHQ-2 Answer Date Recorded Patient Health Questionnaire-2 Score 2 01/17/2023 Housing Stability Answer Date Recorded What is your housing situation today? I have danielle byrd 07/28/[address] you li ve. Do you have problems with any of the following? None of the above 07/28/2024 Food Insecurity Answer Date Recorded Within the past 12 months, y ou worried that your food would run out before you got money to buy more: Never True 07/28/2024 Within the past 12 months,th e food you bought just didn't last and you didn't have enough money to get more: Never True Transportation Answer Date Recorded In the past 12 months, has l ack of transportation kept you from medical appts, meetings, work or from getting things needed for daily living? No 07/28/2024 Utilities Answer Date Recorded In the past 12 months, has t he electric, gas, oil or water company threatened to shut off services in your home? No 07/28/2024 Depression Answer Date Recorded Patient Health Questionnaire-2 Score 2 11/03/2024 Internet Access Answer Date Recorded Internet Access Q1 Yes 08/02/2024 Internet Access Q2 Not on file 08/02/2024 Comments Unknown Sex and Gender Information Value Date Recorded Sex Assigned at Female 10/03/2022 4:43 PM EDT Legal Sex Female 8:36 PM EDT Gender Identity Female 10/03/2022 4:43 PM EDT Sexual Orientation Straight 10/03/2022 4: 43 PM EDT Last Filed Vital Signs Vital Sign Reading Time Taken Comments Blood Pressure 134/74 04/14/2025 8:52 AM EDT Pulse 75 04/14/2025 8:52 AM EDT Temperature 36.4 ??C (97.5 ??F) 02/04/2025 9:03 AM ES T Respiratory Rate 16 02/04/2025 9:03 AM EST Oxygen Saturation 99% 10/17/2023 3:32 PM EST Inhaled Oxygen Concentration - - Weight 88.5 kg (195 lb) 02/04/2025 9:03 AM EST Height 157.5 cm (5' 2 ) 11/03/2024 9:58 AM EST Body Mass Index 35.67 11/03/2024 9:58 AM EST Plan of Treatment Upcoming Encounters Date Type Department Care Team (Late st Contact Info) Description 05/13/2025 9:00 AM EDT Office Visit [facility] [address] [place] [address] Hortencia Aguilar MD [address] [place] [address] 10/20/2025 8:00 AM EST Office Visit [facility] [address] [place] Health Maintenance Due Date Last Done Comments CT Colonography 1976 Colonoscopy 1976 Colorectal Cancer Screening 1976 FIT DNA/Cologuard 1976 FIT 1976 FOBT 1976 HIV Screening 1976 Sigmoidoscopy 1976 Alcohol/Substance Use Screening 1988 Hepatitis C Screening 1994 Hepatitis B Vaccines (1 of 3 - 19+ 3-dose series) 1995 Pneumococcal Vaccine: Pediatrics (0 to 5 Years) and At-Risk Patients (6 to 49) Years) (1 of 2 - PCV) 1995 Pap Smear 1997 Cervical Cancer Screening 2006 HPV/Cotest 2006 DTaP/Tdap/Td Vaccines (2 - Td or Tdap) 04/05/2024 04/05/2014 Dental Oral Exam 09/26/2024 03/26/2024, 02/05/2023 COVID-19 Vaccine ( season) 2025 04/25/2021, 03/28/2021 Postponed from 08/02/2024 (Other Patient Reasons) Influenza Vaccine (Season Ended) 2025 Postponed from 08/02/2025 (Other Patient Reasons) Dental Prophylaxis 10/16/2025 04/14/2025, 1 12/08/2023, 03/26/2024, Additional history exists Mammogram 10/29/2025 10/29/2023, 12/24/2018 Depression Screening 11/03/2025 11/03/2024, 11/03/20 24 Disability Screening 11/03/2025 11/03/2024 SDOH Screening 11/03/2025 11/03/2024 Zoster Vaccines (1 of 2) 2026 Tobacco Screening 04/14/2026 04/14/2025 Dental X-Ray: Bitewings 04/15/2026 04/14/20 25, 03/26/2024, 02/05/2023 Dental X-Ray: Full Mouth 03/27/2027 03/26/2024 Lipid Panel 04/21/2029 04/21/2024, 01/02, 05/16/2023, Additional history exists RSV Patients and Patients Aged 60 years or older (1 - 1-dose 75+ series) 2051 Family Planning (PISQ) Discontinued HIB Vaccines Aged Out No longer eligi ble based on patient's age to complete this topic HPV Vaccines Aged Out No longer eligi ble based on patient's age to complete this topic Hepatitis A Vaccines Aged Out No long er eligible based on patient's age to complete this topic IPV Vaccines Aged Out No longer eligi ble based on patient's age to complete this topic Meningococcal B Vaccine Aged Out No l onger eligible based on patient's age to complete this topic Meningococcal Vaccine Aged Out No parveen yandel eligible based on patient's age to complete this topic RSV under 20 months Aged Out No longe r eligible based on patient's age to complete this topic Rotavirus Vaccines Aged Out No longer eligible based on patient's age to complete this topic Procedures Procedure Name Priority Date/Time Associated Diagnosis Comments COMPREHENSIVE PERIODONTAL EVALUATION - NEW OR ESTABLISHED PATIENT Routine 04/14/2025 9:00 AM EDT CASE PRESENTATION, DETAILED AND EXTENSIVE TREATMENT PLANNING Routine 04/14/2025 9:00 AM EDT INTRAORAL - PERIAPICAL EACH ADDITIONAL RADIOGRAPHIC IMAGE Routine 04/14/2025 9:00 AM EDT INTRAORAL - PERIAPICAL FIRST RADIOGRAPHIC IMAGE Routine 04/14/2025 9:00 AM EDT ORAL HYGIENE INSTRUCTIONS Routine 04/14/2025 9:00 AM EDT BITEWINGS - 4 RADIOGRAPHIC IMAGES Routine 04/14/2025 9:00 AM EDT Full PROPHYLAXIS - ADULT Routine 04/14/2025 9:00 AM EDT LIPID PANEL, STANDARD Routine 04/21/2024 11:28 AM EDT Mixed hyperlipidemia INTRAORAL - COMPLETE SERIES OF RADIOGRAPHIC IMAGES Routine 03/26/2024 8:00 AM EDT PERIODIC ORAL EVALUATION - ESTABLISHED PATIENT Routine 03/26/2024 8:00 AM EDT BI MAMMOGRAM SCREENING BILATERAL Routine 10/29/2023 Encounter for screening mammogram for malignant neoplasm of breast from Last 3 Months or Most Recently Relevant to Health Maintenance Results * (ABNORMAL) Lipid Panel, Standard (04/21/2024 11:28 AM EDT) Cholesterol, Total 206(H) 100 - 199 mg/dL [facility] Triglycerides 103 0 - 149 mg/dL [facility] HDL Cholesterol 41 >39 mg/dL [facility] VLDL Cholesterol Asad 19 5 - 40 mg/dL [facility] LDL Chol Calc (NIH) 146(H) 0 - 99 mg/dL [facility] 1 Blood Venous blood specimen / Unknown 04/21/2024 11:28 AM EDT 04/21/2024 Narrative [facility] 1 - 04/22/2024 6:05 AM EDT Performed at: ??01 - [facility] [address] ??[id number] Production Gear Cutter: Sayra Haines MD, Phone: ??[phone] Hortencia Aguilar MD LAB BLOOD ORDERABLES Final Resul t [facility] * BI Mammogram Screening Bilateral (10/29/2023) Anatomical Region Laterality Modality Breast Bilateral Mammography Hortencia Aguilar MD IMG BI PROCEDURES Final Result from Last 3 Months or Most Recently Relevant to Health [place] [id number] [facility] [place] [address] [place] [address] STANDARD DENTAL-[facility] MEDICAID STAND ADULT Care Teams Teacher Of The Deaf/Hard Of Hearing Relationship Specialty Start Date End Date Hortencia Aguilar MD [address] [place] [address] PCP - General Internal Medicine 01/04/23
== END 2025-05-03 09:16 | disposition home or self-care (01) ==
LOC: HO.XRAY 09:15
PROVIDERS: PCP Internal Medicine; Visit Provider Internal Medicine
DX: R13.14 Dysphagia, pharyngoesophageal phase (principal)
CPT/HCPCS: 74220

== ENCOUNTER → 2025-05-03 09:18 | Outpatient (BNV) | payer MEDICARE, MEDICAID, SELFPAY | PROVIDERS: PCP Internal Medicine; Visit Provider Radiology Diagnostic Radiology | DX: R13.10 Dysphagia, unspecified (principal) | CPT/HCPCS: 74246 ==